=== PATIENT | male | born 1965 | race Caucasian/White ===

== ENCOUNTER 2020-01-10 09:00 | Emergency (ER) | payer SELFPAY ==
[~2020-01-10] VITALS: Ht 162.6 cm; Wt 84.0 kg
[2020-01-10 09:05] VITALS: BP 170/99
[2020-01-10] MEDS ORDERED: KETOROLAC 60MG/2ML VIAL IM ONE (10:00)
== END 2020-01-10 10:31 | disposition home or self-care (01) ==
LOC: ER 09:00
DX: M54.89 Other dorsalgia (principal)
CPT/HCPCS: 96372; 99283; J1885